=== PATIENT | male | born 1980 | race Caucasian/White ===

== ENCOUNTER 2017-08-07 20:52 | Inpatient (IN) | payer MEDICAID, OTHER ==
[~2017-08-07] VITALS: Ht 175.3 cm; Wt 94.3 kg
[~2017-08-07 20:52] MED LIST: CITA10TA68 PO
[2017-08-07 21:56] LABS: BASOPHILS % (AUTO) 1.2 % (0.0-2.0); EOSINOPHILS % (AUTO) 0.8 % (1.0-6.0); HEMATOCRIT 51.3 % (41-53); LYMPHOCYTES # (AUTO) 2.9 K/uL (1.0-4.8); LYMPHOCYTES % (AUTO) 37.4 % (22.0-44.0); MEAN CORPUSCULAR HEMOGLOBIN 26.7 pg (26.0-34.0); MEAN CORPUSCULAR HGB CONC 33.1 G/dL (31.0-37.0); MEAN CORPUSCULAR VOLUME 81 fL (80-100); MONOCYTES # (AUTO) 0.6 K/uL (0.1-1.0); MONOCYTES % (AUTO) 7.7 % (2.0-9.0); NEUTROPHILS # (AUTO) 4.1 K/uL (1.8-7.7); NEUTROPHILS % (AUTO) 52.9 % (40.0-70.0); PLATELET COUNT (AUTO) 231 K/uL (150-450); RED BLOOD CELL COUNT(AUTO) 6.36 MIL/uL (4.50-5.90); RED CELL DISTRIBUTION WIDTH 13.8 % (11.5-14.5)
[2017-08-07] MEDS ORDERED: DiphenhydrAMINE HCL 50 MG/ML VIAL IM ONE (22:30)
[2017-08-07] MEDS ORDERED: LORazepam 2 MG/ML VIAL IM ONE (22:30)
[2017-08-07] MEDS ORDERED: HALOPERIDOL LACTATE 5 MG/ML VIAL IM ONE (22:30)
[2017-08-07 22:31] LABS: ALANINE AMINOTRANSFERASE 46 U/L (12-78); ALKALINE PHOSPHATASE 81 U/L (46-116); ASPARTATE AMINOTRANSFERASE 45 U/L (15-37); BILIRUBIN,TOTAL 1.3 mg/dL (0.1-1.0); CALCIUM, TOTAL 8.2 mg/dL (8.8-10.5); CARBON DIOXIDE 23 mmol/L (22-29); CREATININE 0.64 mg/dL (0.60-1.30); GLOMERULAR FILTR. RATE CALC > 60 mL/min (>60); GLUCOSE,RANDOM 109 mg/dL (70-110); UREA NITROGEN, BLOOD 9 mg/dL (7-18)
[2017-08-07 22:34] LABS: ANION GAP 14 mmol/L (8-16); CHLORIDE 104 mmol/L (98-107); SODIUM SERUM 141 mmol/L (136-145)
[2017-08-07] MEDS ORDERED: LORazepam 2 MG TABLET PO PRN (23:45)
[2017-08-07] MEDS ORDERED: ZOLPIDEM TARTRATE 10 MG TABLET PO PRN (23:45)
[2017-08-07] MEDS ORDERED: HALOPERIDOL 5 MG TABLET PO PRN (23:45)
[2017-08-08 00:08] LABS: CHOL/HDL RATIO 3.2 (4.2-7.3); THYROID STIMULATING HORMONE 2.82 uIU/mL (0.36-3.74)
[2017-08-08] MEDS ORDERED: SODIUM CHLORIDE 0.9% 1,000 ML IV ONE (03:00)
[2017-08-08 10:02] LABS: GLUCOSE,POINT OF CARE 94 MG/DL (70-110)
[2017-08-08 12:38] VITALS: BP 134/91
[2017-08-08 13:05] VITALS: BP 134/91
[2017-08-08 14:01] VITALS: BP 128/84
[2017-08-08] MEDS ORDERED: LOPERAMIDE HCL 2 MG CAPSULE PO PRN (15:00)
[2017-08-08] MEDS ORDERED: HydrOXYzine PAMOATE 50 MG CAPSULE PO PRN (15:00)
[2017-08-08] MEDS ORDERED: GuaiFENesin/D-METHORPHAN [SUGAR-FREE] 200-20MG/10 ML SYRUP UDCUP PO PRN (15:00)
[2017-08-08] MEDS ORDERED: CYANOCOBALAMIN 1,000 MCG/ML VIAL IM ONE (15:00)
[2017-08-08 15:02] VITALS: BP 132/88
[2017-08-08] MEDS: ChlordiazePOXIDE HCL 25 MG CAPSULE PO PRN ×3 (15:06→20:22)
[2017-08-08 16:00] VITALS: BP 129/93
[2017-08-08] MEDS: THIAMINE HCL 100 MG TABLET PO SCH (16:02)
[2017-08-08] MEDS: MULTIVITAMINS WITH MINERALS, THERAPEUTIC TABLET PO SCH (16:02)
[2017-08-08] MEDS: FOLIC ACID 1 MG TABLET PO SCH (16:02)
[2017-08-08 20:00] VITALS: BP 147/87
[2017-08-08] MEDS: MIRTAZAPINE 30 MG TABLET PO SCH (20:01)
[2017-08-09] VITALS (8 sets, daily range): BP systolic 113–136; BP diastolic 53–94
[2017-08-09] MEDS: ChlordiazePOXIDE HCL 25 MG CAPSULE PO PRN (04:07)
[2017-08-09] MEDS ORDERED: ChlordiazePOXIDE HCL 25 MG CAPSULE PO PRN (07:00)
[2017-08-09] MEDS: FOLIC ACID 1 MG TABLET PO SCH (08:55)
[2017-08-09] MEDS: ChlordiazePOXIDE HCL 25 MG CAPSULE PO SCH ×4 (08:55→20:09)
[2017-08-09] MEDS: MULTIVITAMINS WITH MINERALS, THERAPEUTIC TABLET PO SCH (08:55)
[2017-08-09] MEDS: THIAMINE HCL 100 MG TABLET PO SCH ×2 (08:55→16:12)
[2017-08-09] MEDS: OMEGA-3/DHA/EPA/FISH OIL 1,000 MG CAPSULE PO SCH (08:55)
[2017-08-09] MEDS: MIRTAZAPINE 30 MG TABLET PO SCH (20:09)
[2017-08-10 05:07] VITALS: BP 118/63
[2017-08-10] MEDS: OMEGA-3/DHA/EPA/FISH OIL 1,000 MG CAPSULE PO SCH (08:20)
[2017-08-10] MEDS: MULTIVITAMINS WITH MINERALS, THERAPEUTIC TABLET PO SCH (08:20)
[2017-08-10] MEDS: ChlordiazePOXIDE HCL 25 MG CAPSULE PO SCH ×2 (08:20→12:22)
[2017-08-10] MEDS: THIAMINE HCL 100 MG TABLET PO SCH (08:20)
[2017-08-10] MEDS: FOLIC ACID 1 MG TABLET PO SCH (08:20)
[2017-08-10 08:33] VITALS: BP 100/60
[2017-08-10] MEDS ORDERED: MIRT-6 PO (12:26)
[2017-08-10] MEDS ORDERED: OMEG-12 PO (12:35)
[2017-08-11] MEDS ORDERED: ChlordiazePOXIDE HCL 10 MG CAPSULE PO PRN (07:00)
[2017-08-11] MEDS ORDERED: ChlordiazePOXIDE HCL 10 MG CAPSULE PO SCH (09:00)
[2017-08-12] MEDS ORDERED: ChlordiazePOXIDE HCL 10 MG CAPSULE PO PRN (07:00)
== END 2017-08-10 14:20 | disposition home or self-care (01) | DRG 751 ==
LOC: EMS 21:18 → B2S 08-08 07:58
DX: F33.2 Major depressive disorder, recurrent severe without psychotic features (principal); R45.851 Suicidal ideations; E83.51 Hypocalcemia; F29 Unspecified psychosis not due to a substance or known physiological condition; E86.0 Dehydration; F10.229 Alcohol dependence with intoxication, unspecified; E78.5 Hyperlipidemia, unspecified; E78.1 Pure hyperglyceridemia; F12.10 Cannabis abuse, uncomplicated; F41.9 Anxiety disorder, unspecified; G47.00 Insomnia, unspecified; Y90.8 Blood alcohol level of 240 mg/100 ml or more; Z79.899 Other long term (current) drug therapy; Z65.3 Problems related to other legal circumstances; Z91.5 Personal history of self-harm; Z78.1 Physical restraint status
CPT/HCPCS: 82962; 84443; 96360; 96372; 99285; G0480; J1200; J1630; J2060; J3420; J7030